=== PATIENT | female | born 1960 | race Caucasian/White ===

== ENCOUNTER → 2021-01-27 | Outpatient (CLI) | payer OTHER | LOC: M.RAD 10:50 | PROVIDERS: ATTEND Nurse Practitioner Family | DX: Z12.31 Encounter for screening mammogram for malignant neoplasm of breast (principal) ==

== ENCOUNTER → 2021-04-17 | Outpatient (CLI) | payer OTHER | LOC: M.RAD 04-14 13:30 | PROVIDERS: ATTEND Nurse Practitioner Family | DX: Z13.820 Encounter for screening for osteoporosis (principal); Z79.811 Long term (current) use of aromatase inhibitors ==